=== PATIENT | female | born 2000 | race Caucasian/White ===

== ENCOUNTER 2020-08-27 21:42 | Emergency (ER) | payer OTHER ==
[~2020-08-27] VITALS: Ht 165.1 cm; Wt 63.9 kg
[~2020-08-27 21:42] MED LIST: SUMA25TA4 PO
--- NOTE | 2020-08-27 22:36 | NUR ---
THIS RN AT BEDSIDE WITH ERP FOR PELVIC EXAM. PT TOLERATED WELL. SWABS WALKED TO LAB
[2020-08-27 22:42] LABS: CLUE CELLS NONE SEEN (NONE SEEN)
[2020-08-27 22:43] LABS: WET PREP WBCS FEW (FEW)
[2020-08-27] MEDS ORDERED: CEFTRIAXONE 250 MG ONE (22:50)
[2020-08-27] MEDS ORDERED: AZITHROMYCIN 250 MG TABLET ONE (22:50)
[2020-08-27] MEDS ORDERED: CEFTRIAXONE 250 MG IM ONE (23:00)
[2020-08-27] MEDS ORDERED: AZITHROMYCIN 500 MG TABLET PO ONE (23:00)
--- NOTE | 2020-08-27 23:04 | NUR ---
PT UP TO BATHROOM FOR URINE SAMPLE. URINE SENT TO LAB. PT DENIES ANY ADDITIONAL NEEDS AT THIS TIME. CALL LIGHT AND PERSONAL BELONGINGS WITHIN REACH. MOTHER AT BEDSIDE.
[2020-08-27 23:30] LABS: HCG UR SG 1.011 (1.003-1.030); MICROSCOPIC NOT IND
--- NOTE | 2020-08-28 00:15 | NUR ---
Patient given discharge instructions and they have confirmed that they understand the instructions. Patient ambulatory with steady gait.
[2020-08-28 00:26] VITALS: BP 109/68
== END 2020-08-28 00:28 | disposition home or self-care (01) ==
LOC: ED 22:12
DX: A56.8 Sexually transmitted chlamydial infection of other sites (principal); A54.9 Gonococcal infection, unspecified; N89.8 Other specified noninflammatory disorders of vagina
CPT/HCPCS: 81003; 81025; 87210; 87491; 87591; 87808; 96372; 99284; J0696